=== PATIENT | female | born 1960 | race Caucasian/White ===

== ENCOUNTER 2019-03-30 15:52 | Emergency (ER) | payer BC ==
[2019-03-30 16:15] VITALS: BP 100/46
--- NOTE | 2019-03-30 16:23 | UC ---
Throat Pain/Nasal Marlo HPI - HPI Summary HPI Summary: 58-year-old woman comes in with a chief complaint of upper respiratory tract infection symptoms for 10 days. Been having a sore throat some rhinorrhea. Is gotten in her chest and now she has chest congestion she's hearing rhonchi and wheezes. No history of asthma or COPD she has used albuterol in the past when she's been ill. No recent fevers measured. Overall she feels ill. - History of Current Complaint Chief Complaint: UCRespiratory Stated Complaint: URI Time Seen by Provider: 03/30/19 16:01 Pain Intensity: 5 - Allergies/Home Medications Allergies/Adverse Reactions: Allergies Allergy/AdvReac Type Severity Reaction Status Date / Time amoxicillin Allergy Shortness Verified 03/30/19 16:05 of Breath cefaclor Allergy Shortness Verified 03/30/19 16:05 of Breath ciprofloxacin [From Cipro] Allergy Shortness Verified 03/30/19 16:05 of Breath latex Allergy Shortness Verified 03/30/19 16:05 of Breath Penicillins Allergy Shortness Verified 03/30/19 16:05 of Breath sulfamethoxazole Allergy Shortness Verified 03/30/19 16:05 [From Bactrim] of Breath trimethoprim [From Bactrim] Allergy Shortness Verified 03/30/19 16:05 of Breath PMH/Surg Hx/FS Hx/Imm Hx Previously Healthy: Yes GI/ History: Gastroesophageal Reflux - Surgical History Surgical History: Yes Surgery Procedure, Year, and Place: l4-l5 rods/screws. sclerosing mastoiditis - Family History Known Family History: Positive: Non-Contributory - Social History Alcohol Use: Rare Substance Use Type: None Smoking Status (MU): Former Smoker Review of Systems All Other Systems Reviewed And Are Negative: Yes Constitutional: Positive: Other - see hpi Skin: Positive: Negative Eyes: Positive: Negative ENT: Positive: Sore Throat, Nasal Discharge, Sinus Congestion Respiratory: Positive: Shortness Of Breath, Cough, Other - see hpi Cardiovascular: Positive: Negative Gastrointestinal: Positive: Negative Motor: Positive: Negative Neurovascular: Positive: Negative Musculoskeletal: Positive: Negative Neurological: Positive: Negative Psychological: Positive: Negative Is Patient Immunocompromised?: No Physical Exam Triage Information Reviewed: Yes Appearance: No Pain Distress, Well-Nourished, Ill-Appearing - mild Vital Signs: Initial Vital Signs Temp 98.4 F 03/30/19 16:01 Pulse 68 03/30/19 16:01 Resp 20 03/30/19 16:01 BP 100/46 03/30/19 16:01 Pulse Ox 98 03/30/19 16:01 Vital Signs Reviewed: Yes Eye Exam: Normal Eyes: Positive: Conjunctiva Clear ENT: Positive: Pharyngeal erythema, Nasal congestion, Nasal drainage, TMs normal Neck: Positive: Supple Respiratory: Positive: No respiratory distress, Rhonchi Cardiovascular: Positive: RRR Musculoskeletal: Positive: Strength Intact, ROM Intact Neurological: Positive: Alert Psychological: Positive: Age Appropriate Behavior Throat Pain/Nasal Course/Dx - Course Course Of Treatment: Patient's blood pressure was slightly low. This was discussed with the patient reports her blood pressure is always low and she does not feel lightheaded at this time. Plan is to follow-up with primary care doctor reevaluate sooner if worse or any questions or concerns. - Differential Dx/Diagnosis Provider Diagnosis: Bronchitis with bronchospasm Discharge ED - Sign-Out/Discharge Documenting (check all that apply): Patient Departure All imaging exams completed and their final reports reviewed: No Studies - Discharge Plan Condition: Stable Disposition: HOME Prescriptions: Albuterol HFA INHALER* [Ventolin HFA Inhaler*] 2 puff INH Q4H PRN #1 mdi PRN Reason: Wheezing Azithromyxin AMY (NF) [Z-Amy (Zithromax) 250 mg tabs #6] 2 tab PO .TODAY, THEN 1 DAILY #6 tab Patient Education Materials: Acute Bronchitis (ED), Bronchospasm (ED) Referrals: Nasir Rahman DC [Primary Care Provider] - Additional Instructions: FOLLOW UP WITH YOUR DOCTOR IF NOT COMPLETELY IMPROVED. GET RECHECKED SOONER IF YOUR CONDITION WORSENS OR ANY QUESTIONS OR CONCERNS. - Billing Disposition and Condition Condition: STABLE Disposition: Home
== END 2019-03-30 16:35 | disposition home or self-care (01) ==
LOC: UCEAST 15:52
DX: J20.9 Acute bronchitis, unspecified (principal); K21.9 Gastro-esophageal reflux disease without esophagitis; Z87.891 Personal history of nicotine dependence; Z88.0 Allergy status to penicillin; Z88.2 Allergy status to sulfonamides; Z91.040 Latex allergy status
CPT/HCPCS: 99212; G0463